=== PATIENT | male | born 1970 | race Two or more races ===

== ENCOUNTER 2020-09-06 09:56 | Emergency (ER) | payer OTHER ==
[2020-09-06 10:05] VITALS: BP 126/82; PULSE 69; TEMP 97; BMI 33.7
== END 2020-09-06 12:20 | disposition home or self-care (01) ==
LOC: JERFT 09:56
DX: S20.211A Contusion of right front wall of thorax, initial encounter (principal); W50.0XXA Accidental hit or strike by another person, initial encounter
CPT/HCPCS: 71046-TC-FY; 71101-TC-RT-FY; 99283-25

== ENCOUNTER 2023-12-26 15:10 | Emergency (ER) | payer OTHER ==
[2023-12-26 15:18] VITALS: RESP 20; TEMP 98.4; BMI 34.7
[2023-12-26] MEDS: LACTATED RINGERS SOLUTION 1000 ML INFUS.BAG IV ONE (16:29)
[2023-12-26 16:34] LABS: BASO % 0.7 % (0-2.0); EOS % 4.6 % (0-4.5); HEMATOCRIT 42.6 % (35.4-49); HEMOGLOBIN 14.4 GM/dL (11.7-16.9); LYMPH % 24.7 % (8-40); MCH 28.6 pg (25.7-33.7); MCHC 33.7 g/dl (32.0-35.9); MEAN PLT VOLUME 8.5 fl (7.5-11.1); MONO % 6.6 % (3.8-10.2); NEUT % 63.4 % (42.8-82.8); PLATELET COUNT 182 10^3/uL (134-434); RBC 5.02 M/mm3 (4.00-5.60); RDW 13.9 % (11.9-15.9); WHITE BLOOD COUNT 8.1 K/mm3 (4.0-10.0)
[2023-12-26 17:01] LABS: ACTIVATED PTT 31.2 SECONDS (25.2-36.5); INR 0.99 (0.83-1.09); POTASSIUM 3.8 mmol/L (3.5-5.1); PROTHROMBIN TIME (PATIENT) 11.4 SEC (9.7-13.0)
[2023-12-26 17:03] VITALS: BP 118/82; PULSE 46
[2023-12-26 17:03] LABS: CALCIUM 8.8 mg/dL (8.5-10.1)
[2023-12-26 17:04] LABS: BLOOD UREA NITROGEN 13.6 mg/dL (7-18)
[2023-12-26 17:05] LABS: MAGNESIUM 2.1 mg/dL (1.8-2.4)
[2023-12-26 17:09] LABS: BILIRUBIN,TOTAL 0.9 mg/dL (0.2-1); TOT PROT 6.7 g/dl (6.4-8.2)
[2023-12-26] MEDS ORDERED: ACETAMINOPHEN INJECTION 100 ML ONE (17:50)
[2023-12-26] MEDS ORDERED: METOCLOPRAMIDE HCL INJECTION 10 MG/2 ML VIAL ONE (17:50)
[2023-12-26] MEDS: ACETAMINOPHEN 1000 MG/100 ML BAG IVPB ONE (17:57)
[2023-12-26] MEDS: METOCLOPRAMIDE HCL INJECTION 10 MG/2 ML VIAL IVPB ONE (18:17)
== END 2023-12-26 18:51 | disposition home or self-care (01) ==
LOC: JER 15:10
PROC: 3E033NZ Introduction of Analgesics, Hypnotics, Sedatives into Peripheral Vein, Percutaneous Approach (ICD-10-PCS; principal; 2023-12-26)
PROC: 3E033GC Introduction of Other Therapeutic Substance into Peripheral Vein, Percutaneous Approach (ICD-10-PCS; 2023-12-26)
DX: R55 Syncope and collapse (principal); R42 Dizziness and giddiness; R51.9 Headache, unspecified
CPT/HCPCS: 36415; 71045-TC-FY; 80053; 82962; 83735; 84484; 85025; 85610; 85730; 93005; 93010; 99285-25; J0131